=== PATIENT | male | born 1975 | race Caucasian/White ===

== ENCOUNTER → 2017-07-08 | Outpatient (CLI) | payer OTHER ==
--- NOTE | 2017-07-08 17:02 | XR ---
EXAMINATION TYPE: XR elbow complete LT DATE OF EXAM: 07/08/2017 COMPARISON: NONE HISTORY: Elbow pain TECHNIQUE: Previews FINDINGS: I see no fracture nor dislocation. There is a 1.5 cm irregular calcification at the medial humeral condyle. There is no sign of elbow joint effusion. Joint spaces are fairly normal. IMPRESSION: Soft tissue calcification consistent with old injury. No acute bony abnormality.
== END ==
LOC: RADXRMAIN 16:36
PROVIDERS: ATTEND Emergency Medicine
DX: S53.402A Unspecified sprain of left elbow, initial encounter (principal)

== ENCOUNTER 2018-02-13 09:27 | Emergency (ER) | payer OTHER ==
[2018-02-13 09:33] VITALS: TEMP 98.1
[2018-02-13] MEDS ORDERED: GELATIN SPONGE,ABSORB (SMALL) 1 EACH SPONGE TOPICAL STA (09:57)
--- NOTE | 2018-02-13 10:18 | ED ---
General Adult HPI - General Chief complaint: Wound/Laceration Stated complaint: [facility] - lt hand lac Time Seen by Provider: 02/13/18 09:48 Source: patient, RN notes reviewed Mode of arrival: ambulatory Limitations: no limitations - History of Present Illness Initial comments: Patient 42-year-old male presented to the emergency room today with chief complaint of a laceration to the left index. He does admit that he was at work cutting some paper with a spinner box when it slipped and caused a laceration to the distal tip of the left index. He does not that his tetanus is up-to-date. Patient does admit that it cut the tip of the finger off any septal time stopping the bleeding. Patient denies any other complaints or symptoms. - Related Data Home Medications Medication Instructions Recorded Confirmed Amitriptyline HCl 10 mg PO HS 02/13/18 02/13/18 Simvastatin [Zocor] 10 mg PO HS 02/13/18 02/13/18 Allergies Allergy/AdvReac Type Severity Reaction Status Date / Time No Known Allergies Allergy Verified 02/13/18 09:39 Review of Systems ROS Statement: Those systems with pertinent positive or pertinent negative responses have been documented in the HPI. ROS Other: All systems not noted in ROS Statement are negative. Past Medical History Past Medical History: Hypertension History of Any Multi-Drug Resistant Organisms: None Reported Past Surgical History: Tonsillectomy Past Psychological History: No Psychological Hx Reported Smoking Status: Never smoker Past Alcohol Use History: None Reported Past Drug Use History: None Reported General Exam - General Exam Comments Initial Comments: General: The patient is awake and alert, in no distress, and does not appear acutely ill. Neck: The neck is supple, there is no tenderness or JVD. Cardiovascular: There is a regular rate and rhythm. No murmur, rub or gallop is appreciated. Respiratory: Lungs are clear to auscultation, respirations are non-labored, breath sounds are equal. No wheezes, stridor, rales, or rhonchi. Musculoskeletal: Full range motion. Sensation intact. Pulses equal bilateral 2 +. Strength 5/5. Neurological: A&O x 3. CN II-XII intact, There are no obvious motor or sensory deficits. Coordination appears grossly intact. Speech is normal. Skin: Distal tip of the left index finger has been amputated and there is mild venous oozing. Psychiatric: Normal mood and affect. Limitations: no limitations Course Vital Signs 02/13/18 09:31 Temperature 98.1 F Pulse Rate 70 Respiratory 18 Rate Blood Pressure 147/101 O2 Sat by Pulse 100 Oximetry Procedures - Procedures Initial comment: Gelfoam was placed at the distal tip of left index finger. Sterile dressing placed over top and applied. Medical Decision Making - Medical Decision Making Very superficial amputation of the distal aspect of left index finger was some of these oozing. Gelfoam was placed over top and sterile dressing applied. Bleeding controlled patient doing well at this time. Tetanus is up-to-date. Patient will be discharged home. Disposition Clinical Impression: Fingertip amputation Disposition: HOME SELF-CARE Condition: Good Instructions: Laceration (ED) Additional Instructions: Please change dressing twice daily. Watch for signs of infection. Please return to emergency room if the symptoms increase or worsen or for any other concerns. Is patient prescribed a controlled substance at d/c from ED?: No Referrals: Kamala Biggs DO [Primary Care Provider] - 1-2 days Time of Disposition: 10:17
[2018-02-13 10:25] VITALS: BP 151/88; PULSE 67; RESP 20
== END 2018-02-13 10:25 | disposition home or self-care (01) ==
LOC: EC 09:27
DX: S68.121A Partial traumatic metacarpophalangeal amputation of left index finger, initial encounter (principal); I10 Essential (primary) hypertension; Z79.899 Other long term (current) drug therapy; W26.8XXA Contact with other sharp object(s), not elsewhere classified, initial encounter; Y93.89 Activity, other specified; Y99.0 Civilian activity done for income or pay; Y92.69 Other specified industrial and construction area as the place of occurrence of the external cause
CPT/HCPCS: 99282

== ENCOUNTER 2018-05-24 13:11 | Inpatient (IN) | payer BC ==
[2018-05-24 13:57] LABS: Amphetamine Screen,Urine Not Detected (NotDetected); Barbiturate Screen,Urine Not Detected (NotDetected); Benzodiazepines Screen,Urine Not Detected (NotDetected); Cocaine Screen,Urine Not Detected (NotDetected); Methadone Screen, Urine Not Detected (NotDetected); Opiate Screen,Urine Not Detected (NotDetected); Oxycodone Screen, Urine Not Detected (NotDetected); Phencyclidine Screen,Urine Not Detected (NotDetected); Tricyclic Antidepressant,Urine Detected (NotDetected); Urn Cannabinoid Scrn Not Detected (NotDetected)
--- NOTE | 2018-05-24 14:03 | ED ---
Psych HPI - General Chief Complaint: Psychiatric Symptoms Stated Complaint: mental health Time Seen by Provider: 05/24/18 13:24 Source: patient, RN notes reviewed Mode of arrival: ambulatory Limitations: no limitations - History of Present Illness Initial Comments: 42-year-old male presents emergency Department chief complaint of depression, anxiety issues. Patient states that everything is building up in and he states that he is very stressed with work. He has had some thoughts of suicide with no plan. He states that just crosses his mind. He occasionally drinks alcohol no drug abuse. Patient states he does take amitriptyline currently. Patient denies any physical complaints. - Related Data Home Medications Medication Instructions Recorded Confirmed Amitriptyline HCl 10 mg PO HS 02/13/18 02/13/18 Simvastatin [Zocor] 10 mg PO HS 02/13/18 02/13/18 Allergies Allergy/AdvReac Type Severity Reaction Status Date / Time No Known Allergies Allergy Verified 05/24/18 13:19 Review of Systems ROS Statement: Those systems with pertinent positive or pertinent negative responses have been documented in the HPI. ROS Other: All systems not noted in ROS Statement are negative. Past Medical History Past Medical History: Hypertension History of Any Multi-Drug Resistant Organisms: None Reported Past Surgical History: Tonsillectomy Past Psychological History: Anxiety, Depression Smoking Status: Never smoker Past Alcohol Use History: Occasional Past Drug Use History: None Reported General Exam Limitations: no limitations General appearance: alert, in no apparent distress Head exam: Present: atraumatic, normocephalic, normal inspection Eye exam: Present: normal appearance, PERRL, EOMI. Absent: scleral icterus, conjunctival injection, periorbital swelling ENT exam: Present: normal exam, normal oropharynx, mucous membranes moist, TM's normal bilaterally, normal external ear exam Neck exam: Present: normal inspection, full ROM. Absent: tenderness, meningismus, lymphadenopathy Respiratory exam: Present: normal lung sounds bilaterally. Absent: respiratory distress, wheezes, rales, rhonchi, stridor Cardiovascular Exam: Present: regular rate, normal rhythm, normal heart sounds. Absent: systolic murmur, diastolic murmur, rubs, gallop, clicks Neurological exam: Present: alert, oriented X3, CN II-XII intact Psychiatric exam: Present: depressed Skin exam: Present: warm, dry, intact, normal color. Absent: rash Course Vital Signs 05/24/18 13:14 Temperature 97.7 F Pulse Rate 69 Respiratory 18 Rate Blood Pressure 156/86 O2 Sat by Pulse 99 Oximetry Medical Decision Making - Lab Data Lab Results 05/24/18 Range/Units 13:32 Urine Opiates Screen Not Detected (NotDetected) Ur Oxycodone Screen Not Detected (NotDetected) Urine Methadone Screen Not Detected (NotDetected) Ur Propoxyphene Screen Not Detected (NotDetected) Ur Barbiturates Screen Not Detected (NotDetected) U Tricyclic Antidepress Detected H (NotDetected) Ur Phencyclidine Scrn Not Detected (NotDetected) Ur Amphetamines Screen Not Detected (NotDetected) U Methamphetamines Scrn Not Detected (NotDetected) U Benzodiazepines Scrn Not Detected (NotDetected) Urine Cocaine Screen Not Detected (NotDetected) U Marijuana (THC) Screen Not Detected (NotDetected) Disposition Clinical Impression: Depression Disposition: ADMITTED IP TO THIS [facility] Condition: Stable Referrals: Kamala Biggs DO [Primary Care Provider] - 1-2 days
[2018-05-24] MEDS ORDERED: MAG HYDROX/AL HYDROX/SIMETH 30 ML CUP PO PRN (17:03)
[2018-05-24] MEDS ORDERED: MAGNESIUM HYDROXIDE 2,400 MG/10 ML CUP PO PRN (17:03)
[2018-05-24] MEDS ORDERED: LORazepam 1 MG TAB PO PRN (17:03)
[2018-05-24] MEDS ORDERED: ACETAMINOPHEN TAB 325 MG TAB PO PRN (17:03)
[2018-05-24] MEDS ORDERED: ZIPRASIDONE 20 MG VIAL IM PRN (17:07)
[2018-05-24 17:37] VITALS: BMI 37.8
[2018-05-24] MEDS: ATORVASTATIN 10 MG TAB PO SCH (20:53)
--- NOTE | 2018-05-24 22:15 | CONS ---
CONSULTATION DATE OF SERVICE: May 24, 2018. DATE OF CONSULTATION: May 24, 2018. PRESENTING COMPLAINT: Depressed, anxious. HISTORY OF PRESENTING ISSUE: This is a 42-year-old patient who follows with Dr. Kamala Biggs. Has a history of depression, anxiety. The patient has been started to work 2 jobs and he feels he is just feeling different, overwhelmed, having more depression and anxiety. He has had some suicidal thoughts. Appetite has gone down. The patient does take amitriptyline for insomnia and having trouble sleeping. Because of all these things, he decided to get himself signed in. Denies any hallucinations, aggressive behavior. The patient is very mellow during the interview. He presented to the ER. REVIEW OF SYSTEMS: CONSTITUTIONAL: None. HEENT none. Respiratory none. Cardiovascular none. Gastrointestinal: Slightly decreased appetite. HEENT none. Respiratory none. Cardiovascular none. Psychiatry as above. Neurological: Trouble sleeping. PAST MEDICAL HISTORY: Anxiety and depression. PAST SURGICAL HISTORY: Tonsillectomy. SOCIAL HISTORY: Does not smoke. Alcohol rarely. 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 FAMILY HISTORY: Reviewed, noncontributory to presentation. HOME MEDICATIONS: 1. Amitriptyline 10 mg q.h.s. 2. Zocor 10 mg q.h.s. ALLERGIES: None. EXAMINATION: VITAL SIGNS: Temperature 97.5, pulse 98, respirations 16, blood pressure 169/94, pulse ox 99 percent on room air. GENERAL APPEARANCE: Well built, BMI 37.8. Sitting up comfortable. EYES: Pupils equal, conjunctivae normal. HEENT: External appearance of nose and ears normal. Oral cavity normal. NECK: JVD not raised. Mass not palpable. RESPIRATORY: Effort normal. LUNGS are clear. CARDIOVASCULAR: 1st and 2nd sounds no edema. ABDOMEN: Soft, nontender. Liver and spleen not palpable. LYMPHATICS: No lymph nodes palpable in the neck and axilla. PSYCHIATRY: Alert and oriented x3. Mood and affect slightly low appearing. NEUROLOGICAL: Pupils equal. Cranial nerves grossly. Power and sensation grossly intact. INVESTIGATIONS: Urine drug screen positive for tricyclic antidepressants. ASSESSMENT: 1. Obesity BMI 37.8. 2. Essential hypertension. Patient has been diagnosed with, not taking any medications. Will not be started on antihypertensive. 3. Hyperlipidemia. 4. Chronic insomnia, probably from underlying stress. 5. Anxiety and depression, not otherwise specified. PLAN: The patient's Zocor will be continued. I will start the patient on lisinopril hydrochlorothiazide. The patient should see a dietitian for weight loss measures. Otherwise, antidepressants per the psychiatrist. Thank you. Follow up with Dr. Biggs. ELIZA / FREDERIC: [id number] /
[2018-05-25 09:33] LABS: ALT 42 U/L (21-72); AST 27 U/L (17-59); Albumin 4.7 g/dL (3.5-5.0); Alkaline Phosphatase 60 U/L (38-126); Anion Gap 10 mmol/L; Bilirubin, Delta 0.4 mg/dL (0.0-0.2); Bilirubin,Unconjugated 0.9 mg/dL (0.0-1.1); Blood Urea Nitrogen 14 mg/dL (9-20); Carbon Dioxide 28 mmol/L (22-30); Chloride 104 mmol/L (98-107); Glucose 92 mg/dL (74-99); Sodium 142 mmol/L (137-145); Total Bilirubin 1.3 mg/dL (0.2-1.3); Total Protein 7.7 g/dL (6.3-8.2)
[2018-05-25 09:39] LABS: Basophils % (A) 0 %; Eosinophils # (A) 0.2 k/uL (0-0.7); Eosinophils % (A) 2 %; HCT 51.1 % (39.0-53.0); HGB 17.2 gm/dL (13.0-17.5); Lymphocytes # (A) 1.3 k/uL (1.0-4.8); Lymphocytes % (A) 13 %; MCH 30.3 pg (25.0-35.0); MCHC 33.6 g/dL (31.0-37.0); MCV 90.1 fL (80.0-100.0); Monocytes # (A) 0.5 k/uL (0-1.0); Monocytes % (A) 5 %; Neutrophils # (A) 7.9 k/uL (1.3-7.7); Neutrophils % (A) 78 %; Platelet Count 248 k/uL (150-450); RBC 5.67 m/uL (4.30-5.90); RDW 12.5 % (11.5-15.5)
[2018-05-25] MEDS ORDERED: VENLAFAXINE HCL ER 37.5 MG CAP PO SCH (20:00)
[2018-05-25] MEDS ORDERED: lamoTRIgine 25 MG TAB PO SCH (20:00)
[2018-05-25] MEDS: PRAMIPEXOLE 1 MG TAB PO SCH (20:36)
[2018-05-25] MEDS: ATORVASTATIN 10 MG TAB PO SCH (20:36)
--- NOTE | 2018-05-26 11:45 | P.HP ---
Psychiatric H&P - . H&P Date: 05/25/18 History & Physical: Allergies Allergy/AdvReac Type Severity Reaction Status Date / Time No Known Allergies Allergy Verified 05/24/18 17:38 Vital Signs Temp 97.8 F 05/25/18 06:34 Pulse 85 05/25/18 06:34 Resp 18 05/25/18 06:34 BP 151/87 05/25/18 06:34 Pulse Ox 99 05/24/18 13:14 Intake & Output 05/24/18 05/25/18 05/25/18 18:59 06:59 18:59 Weight 109.6 kg 109.6 kg Laboratory Last Values WBC 10.0 k/uL (3.8-10.6) 05/25/18 08:32 RBC 5.67 m/uL (4.30-5.90) 05/25/18 08:32 Hgb 17.2 gm/dL (13.0-17.5) 05/25/18 08:32 Hct 51.1 % (39.0-53.0) 05/25/18 08:32 MCV 90.1 fL (80.0-100.0) 05/25/18 08:32 MCH 30.3 pg (25.0-35.0) 05/25/18 08:32 MCHC 33.6 g/dL (31.0-37.0) 05/25/18 08:32 RDW 12.5 % (11.5-15.5) 05/25/18 08:32 Plt Count 248 k/uL (150-450) 05/25/18 08:32 Neutrophils % 78 % 05/25/18 08:32 Lymphocytes % 13 % 05/25/18 08:32 Monocytes % 5 % 05/25/18 08:32 Eosinophils % 2 % 05/25/18 08:32 Basophils % 0 % 05/25/18 08:32 Neutrophils # 7.9 k/uL (1.3-7.7) H 05/25/18 08:32 Lymphocytes # 1.3 k/uL (1.0-4.8) 05/25/18 08:32 Monocytes # 0.5 k/uL (0-1.0) 05/25/18 08:32 Eosinophils # 0.2 k/uL (0-0.7) 05/25/18 08:32 Basophils # 0.0 k/uL (0-0.2) 05/25/18 08:32 Sodium 142 mmol/L (137-145) 05/25/18 08:32 Potassium 4.0 mmol/L (3.5-5.1) 05/25/18 08:32 Chloride 104 mmol/L (98-107) 05/25/18 08:32 Carbon Dioxide 28 mmol/L (22-30) 05/25/18 08:32 Anion Gap 10 mmol/L 05/25/18 08:32 BUN 14 mg/dL (9-20) 05/25/18 08:32 Creatinine 0.80 mg/dL (0.66-1.25) 05/25/18 08:32 Est GFR (CKD-EPI)AfAm >90 (>60 ml/min/1.73 sqM) 05/25/18 08:32 Est GFR (CKD-EPI)NonAf >90 (>60 ml/min/1.73 sqM) 05/25/18 08:32 Glucose 92 mg/dL (74-99) 05/25/18 08:32 Calcium 10.0 mg/dL (8.4-10.2) 05/25/18 08:32 Total Bilirubin 1.3 mg/dL (0.2-1.3) 05/25/18 08:32 Conjugated Bilirubin 0.0 mg/dL (0.0-0.3) 05/25/18 08:32 Unconjugated Bilirubin 0.9 mg/dL (0.0-1.1) 05/25/18 08:32 Delta Bilirubin 0.4 mg/dL (0.0-0.2) H 05/25/18 08:32 AST 27 U/L (17-59) 05/25/18 08:32 ALT 42 U/L (21-72) 05/25/18 08:32 Alkaline Phosphatase 60 U/L (38-126) 05/25/18 08:32 Total Protein 7.7 g/dL (6.3-8.2) 05/25/18 08:32 Albumin 4.7 g/dL (3.5-5.0) 05/25/18 08:32 TSH 2.080 mIU/L (0.465-4.680) 05/25/18 08:32 Urine Opiates Screen Not Detected (NotDetected) 05/24/18 13:32 Ur Oxycodone Screen Not Detected (NotDetected) 05/24/18 13:32 Urine Methadone Screen Not Detected (NotDetected) 05/24/18 13:32 Ur Propoxyphene Screen Not Detected (NotDetected) 05/24/18 13:32 Ur Barbiturates Screen Not Detected (NotDetected) 05/24/18 13:32 U Tricyclic Antidepress Detected (NotDetected) H 05/24/18 13:32 Ur Phencyclidine Scrn Not Detected (NotDetected) 05/24/18 13:32 Ur Amphetamines Screen Not Detected (NotDetected) 05/24/18 13:32 U Methamphetamines Scrn Not Detected (NotDetected) 05/24/18 13:32 U Benzodiazepines Scrn Not Detected (NotDetected) 05/24/18 13:32 Urine Cocaine Screen Not Detected (NotDetected) 05/24/18 13:32 U Marijuana (THC) Screen Not Detected (NotDetected) 05/24/18 13:32 Assessment and Plan Assessment: Chief Complaint: Psychiatric Symptoms Stated Complaint: mental health Time Seen by Provider: 05/24/18 13:24 Source: patient, RN notes reviewed Mode of arrival: ambulatory Limitations: no limitations - History of Present Illness Initial Comments: 42-year-old male presents emergency Department chief complaint of depression, anxiety issues. Patient states that everything is building up in and he states that he is very stressed with work. He has had some thoughts of suicide with no plan. He states that just crosses his mind. He occasionally drinks alcohol no drug abuse. Patient states he does take amitriptyline currently. Patient denies any physical complaints. (1) Depression Current Visit: Yes Status: Acute Priority: High Code(s): F32.9 - MAJOR DEPRESSIVE DISORDER, SINGLE EPISODE, UNSPECIFIED SNOMED Code(s): 68175929 Plan: Chief Complaint: 2-year-old male presents emergency Department chief complaint of depression, anxiety issues. Patient states that everything is building up in and he states that he is very stressed with work. He has had some thoughts of suicide with no plan. He states that just crosses his mind. He occasionally drinks alcohol no drug abuse. Patient states he does take amitriptyline currently. Patient denies any physical complaints. Musculoskeletal Examination - Abnormal/Involuntary Movements: [none, ] Strength: [greater than antigravity (greater than/equal to 3/5) in all extremities, weakness:] Muscle Tone: [no impairment,] Gait: [grossly normal, Station: [grossly normal, Mental Status Examination - General Appearance: [ disheveled, casual, appears stated age, ] Speech/Language: [spontaneous, slow, hesitant, halting, monotone, ] Attitude/Behavior: [cooperative, guarded, withdrawn, indifferent] Mood: [euthymic, depressed, euphoric, anxious, elated, irritable, angry, fearful , hopelessness, other] Affect: [flat, incongruent, blunted constricted] Orientation: [time, person, place situation] Thought Content: [wnl] Risk Factors: [suicidal (ideations] Perception: [wnl] Thought Processes: [concrete, circumstantial, tangential] Concentration/Attention Span: [wnl] [Per observation and interview with the patient] Recent Memory: [ impaired] [2 or 3 out of 3 in 3 minutes] Remote Memory: [wnl] [past events, as related history] Intelligence: [ average] [based on history, based on vocabulary, syntax, grammar , and content] Judgement: [ poor] [per patient's behavior/history of present illness] Insight: [poor] [understanding severity of illness/history of present illness] Admitting Diagnosis: [Major depressive disorder severe] Patient Limitations: non-compliance, pathological/unsupported environment, no interests] Initial Plan of Care: [Initial hospitalization for 5-7 days stabilize his depression, includes titration of venlafaxine Lamictal and due to poor sleep and restless sleep Mirapex at bedtime. It will take 5-7 days to slowly titrate the medicine does not have any major side effects. He is integrated [facility] milieu therapeutic environment with nursing staff and social work recreational therapy and call managed by medicine] Estimated Length of Stay: [57 days] Initial Discharge Plan: [home referred to therapist, partial hospital, intensive outpatient, residential placement, other] Prognosis: [good, fair, guarded] Justification for Inpatient Hospitalization - [Hallucinations, delusions, agitation, anxiety, depression resulting in significant loss of functioning.] [Dangerous to self, others, or property with need for controlled environment.] [Emotional or behavioral conditions and complications requiring 24 hour medical and nursing care.] [Need for special drug therapy, or other therapeutic program requiring continuous hospitalization.] [Failure of social or occupational functioning.] [Inability to meet basic life and health needs.] Review of Systems ROS Statement: Those systems with pertinent positive or pertinent negative responses have been documented in the HPI. ROS Other: All systems not noted in ROS Statement are negative. Past Medical History Past Medical History: Hypertension History of Any Multi-Drug Resistant Organisms: None Reported Past Surgical History: Tonsillectomy Past Psychological History: Anxiety, Depression Smoking Status: Never smoker Past Alcohol Use History: Occasional Past Drug Use History: None Reported General Exam Limitations: no limitations General appearance: alert, in no apparent distress Head exam: Present: atraumatic, normocephalic, normal inspection Eye exam: Present: normal appearance, PERRL, EOMI. Absent: scleral icterus, conjunctival injection, periorbital swelling ENT exam: Present: normal exam, normal oropharynx, mucous membranes moist, TM's normal bilaterally, normal external ear exam Neck exam: Present: normal inspection, full ROM. Absent: tenderness, meningismus, lymphadenopathy Respiratory exam: Present: normal lung sounds bilaterally. Absent: respiratory distress, wheezes, rales, rhonchi, stridor Cardiovascular Exam: Present: regular rate, normal rhythm, normal heart sounds. Absent: systolic murmur, diastolic murmur, rubs, gallop, clicks Neurological exam: Present: alert, oriented X3, CN II-XII intact Psychiatric exam: Present: depressed Skin exam: Present: warm, dry, intact, normal color. Absent: rash Course Vital Signs 05/24/18 13:14 Temperature 97.7 F Pulse Rate 69 Respiratory 18 Rate Blood Pressure 156/86 O2 Sat by Pulse 99 Oximetry Medical Decision Making - Lab Data Lab Results 05/24/18 Range/Units 13:32 Urine Opiates Screen Not Detected (NotDetected) Ur Oxycodone Screen Not Detected (NotDetected) Urine Methadone Screen Not Detected (NotDetected) Ur Propoxyphene Screen Not Detected (NotDetected) Ur Barbiturates Screen Not Detected (NotDetected) U Tricyclic Antidepress Detected H (NotDetected) Ur Phencyclidine Scrn Not Detected (NotDetected) Ur Amphetamines Screen Not Detected (NotDetected) U Methamphetamines Scrn Not Detected (NotDetected) U Benzodiazepines Scrn Not Detected (NotDetected) Urine Cocaine Screen Not Detected (NotDetected) U Marijuana (THC) Screen Not Detected (NotDetected) Disposition Clinical Impression: Depression Disposition: ADMITTED IP TO THIS [facility] Condition: Stable Referrals: Time with Patient: Greater than 30
--- NOTE | 2018-05-26 11:53 | P.PN ---
Subjective Progress Note Date: 05/26/18 Principal diagnosis: MDD This 42-year-old white male was seen today and chart reviewed and discussed in detail the symptoms of depression. He was able take medications last night venlafaxine Lamictal and Mirapex without difficulty and now is on a titration course for stabilization. Also talked about diet Colleen versus a hopeful plant-based diet and suggested 42-year-old male presents emergency Department chief complaint of depression, anxiety issues. Patient states that everything is building up in and he states that he is very stressed with work. He has had some thoughts of suicide with no plan. He states that just crosses his mind. He occasionally drinks alcohol no drug abuse. Patient states he does take amitriptyline currently. Patient denies any physical complaints. Mental Status Examination - General Appearance: [ disheveled, casual, appears stated age, ] Speech/Language: [spontaneous, slow, hesitant, halting, monotone, ] Attitude/Behavior: [cooperative, guarded, withdrawn, indifferent] Mood: [euthymic, depressed, euphoric, anxious, elated, irritable, angry, fearful , hopelessness, other] Affect: [flat, incongruent, blunted constricted] Orientation: [time, person, place situation] Thought Content: [wnl] Risk Factors: [suicidal (ideations] Perception: [wnl] Thought Processes: [concrete, circumstantial, tangential] Concentration/Attention Span: [wnl] [Per observation and interview with the patient] Recent Memory: [ impaired] [2 or 3 out of 3 in 3 minutes] Remote Memory: [wnl] [past events, as related history] Intelligence: [ average] [based on history, based on vocabulary, syntax, grammar , and content] Judgement: [ poor] [per patient's behavior/history of present illness] Insight: [poor] [understanding severity of illness/history of present illness] Admitting Diagnosis: [Major depressive disorder severe] Initial Plan of Care: [Initial hospitalization for 5 days stabilize his depression, includes titration of venlafaxine Lamictal and due to poor sleep and restless sleep Mirapex at bedtime. It will take 5 days to slowly titrate the medicine does not have any major side effects. He is integrated ley milieu therapeutic environment with nursing staff and social work recreational therapy and call managed by medicine] Estimated Length of Stay: [57 days] Initial Discharge Plan: [home referred to therapist, partial hospital, intensive outpatient, residential placement, other] Prognosis: [good] Objective - Vital Signs Vital signs: Vital Signs Temp 98.3 F 05/26/18 06:17 Pulse 97 05/26/18 06:21 Resp 20 05/26/18 06:17 BP 150/100 05/26/18 06:21 Pulse Ox 97 05/26/18 06:21 Intake & Output 05/25/18 05/26/18 05/26/18 18:59 06:59 18:59 Weight 109.6 kg - Labs CBC & Chem 7: 05/25/18 08:32 05/25/18 08:32 Assessment and Plan (1) Depression Current Visit: Yes Status: Acute Priority: High Code(s): F32.9 - MAJOR DEPRESSIVE DISORDER, SINGLE EPISODE, UNSPECIFIED SNOMED Code(s): 68044278 Plan: Chief Complaint: 2-year-old male presents emergency Department chief complaint of depression, anxiety issues. Patient states that everything is building up in and he states that he is very stressed with work. He has had some thoughts of suicide with no plan. He states that just crosses his mind. He occasionally drinks alcohol no drug abuse. Patient states he does take amitriptyline currently. Patient denies any physical complaints. Musculoskeletal Examination - Abnormal/Involuntary Movements: [none, ] Strength: [greater than antigravity (greater than/equal to 3/5) in all extremities, weakness:] Muscle Tone: [no impairment,] Gait: [grossly normal, Station: [grossly normal, Mental Status Examination - General Appearance: [ disheveled, casual, appears stated age, ] Speech/Language: [spontaneous, slow, hesitant, halting, monotone, ] Attitude/Behavior: [cooperative, guarded, withdrawn, indifferent] Mood: [euthymic, depressed, euphoric, anxious, elated, irritable, angry, fearful , hopelessness, other] Affect: [flat, incongruent, blunted constricted] Orientation: [time, person, place situation] Thought Content: [wnl] Risk Factors: [suicidal (ideations] Perception: [wnl] Thought Processes: [concrete, circumstantial, tangential] Concentration/Attention Span: [wnl] [Per observation and interview with the patient] Recent Memory: [ impaired] [2 or 3 out of 3 in 3 minutes] Remote Memory: [wnl] [past events, as related history] Intelligence: [ average] [based on history, based on vocabulary, syntax, grammar , and content] Judgement: [ poor] [per patient's behavior/history of present illness] Insight: [poor] [understanding severity of illness/history of present illness] Admitting Diagnosis: [Major depressive disorder severe] Patient Limitations: non-compliance, pathological/unsupported environment, no interests] Initial Plan of Care: [Initial hospitalization for 5-7 days stabilize his depression, includes titration of venlafaxine Lamictal and due to poor sleep and restless sleep Mirapex at bedtime. It will take 5-7 days to slowly titrate the medicine does not have any major side effects. He is integrated ley milieu therapeutic environment with nursing staff and social work recreational therapy and call managed by medicine] Estimated Length of Stay: [57 days] Initial Discharge Plan: [home referred to therapist, partial hospital, intensive outpatient, residential placement, other] Prognosis: [good, fair, guarded] Justification for Inpatient Hospitalization - [Hallucinations, delusions, agitation, anxiety, depression resulting in significant loss of functioning.] [Dangerous to self, others, or property with need for controlled environment.] [Emotional or behavioral conditions and complications requiring 24 hour medical and nursing care.] [Need for special drug therapy, or other therapeutic program requiring continuous hospitalization.] [Failure of social or occupational functioning.] [Inability to meet basic life and health needs.] Review of Systems ROS Statement: Those systems with pertinent positive or pertinent negative responses have been documented in the HPI. ROS Other: All systems not noted in ROS Statement are negative. Past Medical History Past Medical History: Hypertension History of Any Multi-Drug Resistant Organisms: None Reported Past Surgical History: Tonsillectomy Past Psychological History: Anxiety, Depression Smoking Status: Never smoker Past Alcohol Use History: Occasional Past Drug Use History: None Reported General Exam Limitations: no limitations General appearance: alert, in no apparent distress Head exam: Present: atraumatic, normocephalic, normal inspection Eye exam: Present: normal appearance, PERRL, EOMI. Absent: scleral icterus, conjunctival injection, periorbital swelling ENT exam: Present: normal exam, normal oropharynx, mucous membranes moist, TM's normal bilaterally, normal external ear exam Neck exam: Present: normal inspection, full ROM. Absent: tenderness, meningismus, lymphadenopathy Respiratory exam: Present: normal lung sounds bilaterally. Absent: respiratory distress, wheezes, rales, rhonchi, stridor Cardiovascular Exam: Present: regular rate, normal rhythm, normal heart sounds. Absent: systolic murmur, diastolic murmur, rubs, gallop, clicks Neurological exam: Present: alert, oriented X3, CN II-XII intact Psychiatric exam: Present: depressed Skin exam: Present: warm, dry, intact, normal color. Absent: rash Course Vital Signs 05/24/18 13:14 Temperature 97.7 F Pulse Rate 69 Respiratory 18 Rate Blood Pressure 156/86 O2 Sat by Pulse 99 Oximetry Medical Decision Making - Lab Data Lab Results 05/24/18 Range/Units 13:32 Urine Opiates Screen Not Detected (NotDetected) Ur Oxycodone Screen Not Detected (NotDetected) Urine Methadone Screen Not Detected (NotDetected) Ur Propoxyphene Screen Not Detected (NotDetected) Ur Barbiturates Screen Not Detected (NotDetected) U Tricyclic Antidepress Detected H (NotDetected) Ur Phencyclidine Scrn Not Detected (NotDetected) Ur Amphetamines Screen Not Detected (NotDetected) U Methamphetamines Scrn Not Detected (NotDetected) U Benzodiazepines Scrn Not Detected (NotDetected) Urine Cocaine Screen Not Detected (NotDetected) U Marijuana (THC) Screen Not Detected (NotDetected) Disposition Clinical Impression: Depression Disposition: ADMITTED IP TO THIS [facility] Condition: Stable Referrals: Time with Patient: Greater than 30
[2018-05-26] MEDS: LISINOPRIL-HCTZ 20-12.5 MG 1 EACH TAB PO SCH (13:30)
[2018-05-26] MEDS: lamoTRIgine 25 MG TAB PO SCH (21:17)
[2018-05-26] MEDS: VENLAFAXINE HCL ER 75 MG CAP PO SCH (21:17)
[2018-05-26] MEDS: cloNIDine HCL 0.1 MG TAB PO SCH (21:17)
[2018-05-26] MEDS: PRAMIPEXOLE 1 MG TAB PO SCH (21:17)
[2018-05-26 22:18] LABS: Cholesterol 153 mg/dL (<200); HDL Cholesterol 44 mg/dL (40-60); LDL Cholesterol,Calculated 90 mg/dL (0-99); Triglycerides 97 mg/dL (<150)
[2018-05-27] MEDS: lamoTRIgine 25 MG TAB PO SCH (09:26)
[2018-05-27] MEDS: cloNIDine HCL 0.1 MG TAB PO SCH ×2 (09:26→21:09)
[2018-05-27] MEDS: LISINOPRIL-HCTZ 20-12.5 MG 1 EACH TAB PO SCH (09:26)
--- NOTE | 2018-05-27 19:28 | P.PN ---
Progress Note - Text Progress Note Date: 05/27/18 IDENTIFICATION DATA: 42-year-old male admitted with worsening depression, job stress and anxiety. INTERVAL HISTORY: Behavioral problems No major behavioral problems reported. Mood disorder: He reports being in the hospital and talking to others going to groups has helped him a lot. He states he is able to come terms with himself. He states he is now able to think back and realize what went wrong and claims he is writing things to sort and organize his work schedules so he will not be too overwhelmed with his work schedules. He currently understands that he had taken too much on his shoulders than he could handle. He satets he is slowly recouparating himself. He reports feeling little confused at times. He states he is trying to get back to his normal Self again. He states he is picking back up on his motivation. He reports slight improvement in his appetite and sleep. He denies current suicidal or homicidal ideations Psychosis: Denies symptoms of psychosis. MENTAL STATUS EXAMINATION: 42- year-old male. He appeared his stated age in fair grooming and hygiene. dressed casually. No abnormal movements noted. The patient is alert and oriented 4 and in no apparent distress. speech and thought process are linear and goal directed. Mood is reported as getting better and affect is constricted. Denies suicidal or homicidal ideation. Denies auditory and visual hallucaintions. Not delusional. insight and judgment are improving. ASSESSMENT AND PLAN: Continue current medications Continue all precuations Monitor for symptoms
[2018-05-27] MEDS: PRAMIPEXOLE 1 MG TAB PO SCH (21:09)
[2018-05-27] MEDS: VENLAFAXINE HCL ER 75 MG CAP PO SCH (21:09)
[2018-05-27] MEDS: ATORVASTATIN 10 MG TAB PO SCH (21:09)
[2018-05-28] MEDS: cloNIDine HCL 0.1 MG TAB PO SCH ×2 (10:12→21:17)
[2018-05-28] MEDS: lamoTRIgine 25 MG TAB PO SCH (10:12)
[2018-05-28] MEDS: LISINOPRIL-HCTZ 20-12.5 MG 1 EACH TAB PO SCH (10:12)
--- NOTE | 2018-05-28 17:55 | P.PN ---
Progress Note - Text Progress Note Date: 05/28/18 IDENTIFICATION DATA : 42-year-old male admitted with worsening depression, job stress and anxiety. INTERVAL HISTORY: He reports feeling lot better today. He however reports feeling anxious when he thinks about his job. He reports his sleep is hit and miss and states at times it is difficult to sleep due to being noisy on the unit. He states he has been able to eat well. He is complaint with his medications. He reports waking up feeling foggy and attributes it to getting adjusted to his medications. He reports feeling confused at times and is unable to tell the names of his current medications. He also complains of constipation. MENTAL STATUS EXAMINATION: The patient is alert and oriented 4 and in no apparent distress. he appears in fair grooming and hygiene. Dressed casually. He is pleasant and cooperative. Mood is "better" and affect is constricted. Denies auditory and visual hallucinations. thought processes is linear and goal directed. thought content is negative for suicidal or homicidal ideation. insight and judgment are improving ASSESSMENT AND PLAN: Continue current medications Continue precuations Monitor for symptoms
[2018-05-28] MEDS: PRAMIPEXOLE 1 MG TAB PO SCH (21:17)
[2018-05-28] MEDS: ATORVASTATIN 10 MG TAB PO SCH (21:17)
[2018-05-28] MEDS: VENLAFAXINE HCL ER 75 MG CAP PO SCH (21:17)
[2018-05-29 07:12] VITALS: TEMP 98.3
[2018-05-29] MEDS: cloNIDine HCL 0.1 MG TAB PO SCH (08:05)
[2018-05-29] MEDS: LISINOPRIL-HCTZ 20-12.5 MG 1 EACH TAB PO SCH (08:05)
[2018-05-29] MEDS: lamoTRIgine 25 MG TAB PO SCH (08:05)
[2018-05-29 08:07] VITALS: BP 132/98; PULSE 103; RESP 18
--- NOTE | 2018-05-29 11:20 | P.DS ---
Providers Date of admission: 05/24/18 16:33 Expected date of discharge: 05/29/18 Attending physician: Sherman Miranda DO Consults: 05/24/18 17:03 Consult Physician Routine Consulting Provider: Umang Munson Consult Reason/Comments: H & P and medical care Do you want consulting provider notified?: Yes Primary care physician: Kamala Biggs - Discharge Diagnosis(es) (1) Depression Current Visit: Yes Status: Acute Priority: High Hospital Course: 42-year-old male presents emergency Department chief complaint of depression, anxiety issues. Patient states that everything is building up in and he states that he is very stressed with work. He has had some thoughts of suicide with no plan. He states that just crosses his mind. He occasionally drinks alcohol no drug abuse. Patient states he does take amitriptyline currently. Patient denies any physical complaints. Initial Plan of Care: [Initial hospitalization for 5-7 days stabilize his depression, includes titration of venlafaxine Lamictal and due to poor sleep and restless sleep Mirapex at bedtime. It will take 5-7 days to slowly titrate the medicine does not have any major side effects. He is integrated ley milieu therapeutic environment with nursing staff and social work recreational therapy and call managed by medicine] Past Medical History Past Medical History: Hypertension History of Any Multi-Drug Resistant Organisms: None Reported Past Surgical History: Tonsillectomy Past Psychological History: Anxiety, Depression Smoking Status: Never smoker Past Alcohol Use History: Occasional Past Drug Use History: None Reported Mental Status Examination - General Appearance: [Dressed and groomed and appropriate with good eye contact] Speech/Language: [Spontaneous with good concentration and appropriate answers] Attitude/Behavior: [cooperative] Mood: [euthyic] Affect: [Reactive and appropriate Orientation: [time, person, place situation] Thought Content: [wnl] Risk Factors: [No suicidal homicidal ideation Perception: [wnl] Thought Processes: [Intact] Concentration/Attention Span: [wnl] [Per observation and interview with the patient] Recent Memory: [ Within normal] [2 or 3 out of 3 in 3 minutes] Remote Memory: [wnl] [past events, as related history] Intelligence: [ average] [based on history, based on vocabulary, syntax, grammar , and content] Judgement: [ Deemed well within normal] [per patient's behavior/history of present illness] Insight: [Increased since his hospitalization has greater understanding of the severity of his illness and why he is here] [understanding severity of illness/ history of present illness] Hospital course: This 42-year-old male presented to the emergency room with the chief complaint of depression and anxiety and overwhelming fear. He was admitted to the behavioral unit and integrated into work and milieu therapeutic environment. He participated in social work group, nursing group, recreational group, and was evaluated by medicine which found he had mild hypertension which was treated. He does have hypercholesterolemia and is treated for that as well with the staff. He had no adverse reaction to the medication of starting on venlafaxine Lamictal and Mirapex for enabling his sleep anxiety and depression. As noted before list of medications are listed. I did emphasize to him he has some worry about medication causing weight suggested a hopeful plant-based diet, exercise, a palm food 3 times a day and healthy lifestyle. Patient Condition at Discharge: Stable Plan - Discharge Summary Discharge Rx Participant: No New Discharge Prescriptions: New cloNIDine HCL [Catapres] 0.1 mg PO BID 30 Days #60 tab lamoTRIgine [LaMICtal] 50 mg PO DAILY 30 Days #30 tab Lisinopril-Hctz 20-12.5 mg [Zestoretic 20-12.5] 1 each PO DAILY 30 Days #30 tab Pramipexole [Mirapex] 1 mg PO 1999 30 Days #30 tab Venlafaxine HCl ER [Effexor XR] 75 mg PO HS 30 Days #30 cap.er.24h Continue Simvastatin [Zocor] 10 mg PO HS Discontinued Amitriptyline HCl 10 mg PO HS Discharge Medication List Simvastatin [Zocor] 10 mg PO HS 02/13/18 [History] Lisinopril-Hctz 20-12.5 mg [Zestoretic 20-12.5] 1 each PO DAILY 30 Days #30 tab 05/29/18 [Rx] Pramipexole [Mirapex] 1 mg PO 1999 30 Days #30 tab 05/29/18 [Rx] Venlafaxine HCl ER [Effexor XR] 75 mg PO HS 30 Days #30 cap.er.24h 05/29/18 [Rx] cloNIDine HCL [Catapres] 0.1 mg PO BID 30 Days #60 tab 05/29/18 [Rx] lamoTRIgine [LaMICtal] 50 mg PO DAILY 30 Days #30 tab 05/29/18 [Rx] Follow up Appointment(s)/Referral(s): Kamala Biggs DO [Primary Care Provider] - 1-2 days Discharge Disposition: HOME SELF-CARE
[2018-05-29 11:29] LABS: Appearance,Urine Clear (Clear); Bilirubin,Urine Negative (Negative); Blood,Urine Trace (Negative); Color,Urine Light Yellow; Glucose,Urine (UA) Negative (Negative); Ketones,Urine Negative (Negative); Leukocyte Esterase,Urine Negative (Negative); Nitrite,Urine Negative (Negative); Protein,Urine Negative (Negative); RBC,Urine <1 /hpf (0-5); Specific Gravity,Urine 1.005 (1.001-1.035); Urobilinogen,Urine <2.0 mg/dL (<2.0)
== END 2018-05-29 15:10 | disposition home or self-care (01) | DRG 881 ==
LOC: EC 13:11 → 3MHU 16:33
PROVIDERS: ADMIT Psychiatry & Neurology Psychiatry; ATTEND Psychiatry & Neurology Psychiatry
DX: F32.9 Major depressive disorder, single episode, unspecified (principal); R45.851 Suicidal ideations; E66.9 Obesity, unspecified; E78.00 Pure hypercholesterolemia, unspecified; F41.9 Anxiety disorder, unspecified; F51.04 Psychophysiologic insomnia; I10 Essential (primary) hypertension; K59.00 Constipation, unspecified; Z68.37 Body mass index [BMI] 37.0-37.9, adult; Z91.19 Patient's noncompliance with other medical treatment and regimen
CPT/HCPCS: 80053; 80061; 80306; 81001; 82075; 82248; 84443; 85025; 99285

== ENCOUNTER 2020-02-20 17:41 | Emergency (ER) | payer BC ==
--- NOTE | 2020-02-20 18:29 | ED ---
General Adult HPI - General Stated complaint: COVID exposure, wants test - History of Present Illness Initial comments: The patient is a 44-year-old male who presents to the emergency room and accompanied by his son requesting Covid testing. The patient found out that his mother test positive for Covid yesterday and he was in close contact with her. He denies having any symptoms. He denies any headaches or visual changes. No fevers or chills. Denies cough, shortness of breath. No nausea or vomiting. There are no other alleviating, precipitating or modifying factors - Related Data Home Medications Medication Instructions Recorded Confirmed Simvastatin [Zocor] 10 mg PO HS 02/13/18 05/24/18 Previous Rx's Medication Instructions Recorded Lisinopril-Hctz 20-12.5 mg 1 each PO DAILY 30 Days #30 tab 05/29/18 [Zestoretic 20-12.5] Pramipexole [Mirapex] 1 mg PO 2000 30 Days #30 tab 05/29/18 Venlafaxine HCl ER [Effexor XR] 75 mg PO HS 30 Days #30 cap.er.24h 05/29/18 cloNIDine HCL [Catapres] 0.1 mg PO BID 30 Days #60 tab 05/29/18 lamoTRIgine [LaMICtal] 50 mg PO DAILY 30 Days #30 tab 05/29/18 Allergies Allergy/AdvReac Type Severity Reaction Status Date / Time No Known Allergies Allergy Verified 05/24/18 17:38 Review of Systems ROS Statement: Those systems with pertinent positive or pertinent negative responses have been documented in the HPI. ROS Other: All systems not noted in ROS Statement are negative. Past Medical History Past Medical History: Coronary Artery Disease (CAD), Hypertension History of Any Multi-Drug Resistant Organisms: None Reported Past Surgical History: Tonsillectomy Past Anesthesia/Blood Transfusion Reactions: No Reported Reaction Past Psychological History: Anxiety, Depression Smoking Status: Never smoker Past Alcohol Use History: Occasional Past Drug Use History: None Reported Course Vital Signs 02/20/20 18:41 Temperature 97.6 F Pulse Rate 88 Respiratory 18 Rate Blood Pressure 157/104 O2 Sat by Pulse 96 Oximetry Medical Decision Making - Medical Decision Making Upon arrival the patient was placed into ATP room. Examination does not demonstrate any signs of respiratory distress. Patient reports feeling a symptomatic but is requesting Covid testing. Because this we did perform a swab. Patient is informed that he will be called with positive results. He is instructed to quarantine himself for 14 days. If she has any new or worsening symptoms he should return to the emergency room. Patient was in agreement with the treatment plan he was discharged home in stable condition Disposition Clinical Impression: Cough, Nasal congestion Disposition: HOME SELF-CARE Condition: Stable Instructions (If sedation given, give patient instructions): Normal Exam (ED) Additional Instructions: We will call you with positive results. Quarantine yourself for for 14 days. Return to the emergency room for any new or worsening symptoms Is patient prescribed a controlled substance at d/c from ED?: No Referrals: Kamala Biggs DO [Primary Care Provider] - 1-2 days Time of Disposition: 18:29
[2020-02-20 18:46] VITALS: BP 157/104; PULSE 88; RESP 18; TEMP 97.6
== END 2020-02-20 18:56 | disposition home or self-care (01) ==
LOC: EC 17:41
DX: U07.1 COVID-19 (principal); Z79.899 Other long term (current) drug therapy
CPT/HCPCS: 99283; U0003

== ENCOUNTER → 2022-11-23 | Outpatient (CLI) | payer OTHER ==
--- NOTE | 2022-11-23 15:55 | XR ---
EXAMINATION TYPE: XR lumbar spine 2 or 3V DATE OF EXAM: 11/23/2022 CLINICAL HISTORY: pain TECHNIQUE: Three views of the lumbar spine are submitted. COMPARISON: None. FINDINGS: There are 5 lumbar type vertebral bodies identified. The lumbar spine shows satisfactory alignment w ithout evidence of acute fracture or dislocation. Vertebral body heights are within normal limits. Disc spaces are within normal limits. The overlying soft tissue appears unremarkable. IMPRESSION: No acute fracture or dislocation is seen in the lumbar spine. ICD 10 NO FRACTURE, INITIAL EVALUATION
== END | disposition home or self-care (01) ==
LOC: CPPFTMAIN 14:56
PROVIDERS: ATTEND Emergency Medicine
DX: S39.012A Strain of muscle, fascia and tendon of lower back, initial encounter (principal)
CPT/HCPCS: 72100

== ENCOUNTER 2023-05-04 04:47 | Emergency (ER) | payer BC, OTHER ==
[2023-05-04 06:21] VITALS: RESP 18
[2023-05-04] MEDS ORDERED: SODIUM CHLORIDE 0.9% 2,000 ML IV STA (07:09)
[2023-05-04] MEDS ORDERED: ONDANSETRON 4 MG/2 ML VIAL IVP STA (07:10)
--- NOTE | 2023-05-04 07:19 | ED ---
General Adult HPI - General Chief complaint: Recheck/Abnormal Lab/Rx Stated complaint: Dehydration Time Seen by Provider: 05/04/23 06:58 Source: patient, RN notes reviewed Mode of arrival: ambulatory Limitations: no limitations - History of Present Illness Initial comments: 47-year-old male presents emergency Department chief complaint of concerns of dehydration. Patient states that he had some pressure symptoms to cervical weekend he states that he has not been eating well his been nauseated. He went to urgent care and told to get worse over emergency department. He denies any localized abdominal pain no chest pain or shortness of breath he states he has mild congestion and nausea. No fever no sick contacts. - Related Data Home Medications Medication Instructions Recorded Confirmed Simvastatin [Zocor] 10 mg PO HS 02/13/18 05/24/18 Previous Rx's Medication Instructions Recorded Lisinopril-Hctz 20-12.5 mg 1 each PO DAILY 30 Days #30 tab 05/29/18 [Zestoretic 20-12.5] Pramipexole [Mirapex] 1 mg PO 2000 30 Days #30 tab 05/29/18 Venlafaxine HCl ER [Effexor XR] 75 mg PO HS 30 Days #30 cap.er.24h 05/29/18 cloNIDine HCL [Catapres] 0.1 mg PO BID 30 Days #60 tab 05/29/18 lamoTRIgine [LaMICtal] 50 mg PO DAILY 30 Days #30 tab 05/29/18 Allergies Allergy/AdvReac Type Severity Reaction Status Date / Time No Known Allergies Allergy Verified 05/04/23 04:56 Review of Systems ROS Statement: Those systems with pertinent positive or pertinent negative responses have been documented in the HPI. ROS Other: All systems not noted in ROS Statement are negative. Past Medical History Past Medical History: Coronary Artery Disease (CAD), Hypertension History of Any Multi-Drug Resistant Organisms: None Reported Past Surgical History: Tonsillectomy Past Anesthesia/Blood Transfusion Reactions: No Reported Reaction Past Psychological History: Anxiety, Depression Smoking Status: Never smoker Past Alcohol Use History: Occasional Past Drug Use History: None Reported General Exam Limitations: no limitations General appearance: alert, in no apparent distress Head exam: Present: atraumatic, normocephalic, normal inspection Eye exam: Present: normal appearance, PERRL, EOMI. Absent: scleral icterus, conjunctival injection, periorbital swelling ENT exam: Present: normal exam, normal oropharynx, mucous membranes moist Neck exam: Present: normal inspection, full ROM. Absent: tenderness, meningismus, lymphadenopathy Respiratory exam: Present: normal lung sounds bilaterally. Absent: respiratory distress, wheezes, rales, rhonchi, stridor Cardiovascular Exam: Present: regular rate, normal rhythm, normal heart sounds. Absent: systolic murmur, diastolic murmur, rubs, gallop, clicks GI/Abdominal exam: Present: soft, normal bowel sounds. Absent: distended, tenderness, guarding, rebound, rigid Course Vital Signs 05/04/23 04:53 Temperature 98.1 F Pulse Rate 75 Respiratory 18 Rate Blood Pressure 155/84 O2 Sat by Pulse 97 Oximetry Medical Decision Making - Medical Decision Making Was pt. sent in by a medical professional or institution (, PA, COMMUNITY AFFAIRS DIRECTOR, urgent care, hospital, or alf...) When possible be specific @ -No Did you speak to anyone other than the patient for history (EMS, parent, family, police, friend...)? What history was obtained from this source @ -No Did you review nursing and triage notes (agree or disagree)? Why? @ -I reviewed and agree with nursing and triage notes Were old charts reviewed (outside hosp., previous admission, EMS record, old EKG, old radiological studies, urgent care reports/EKG's, alf records)? Report findings @ -No old charts were reviewed Differential Diagnosis (chest pain, altered mental status, abdominal pain women, abdominal pain men, vaginal bleeding, weakness, fever, dyspnea, syncope, headache, dizziness, GI bleed, back pain, seizure, CVA, palpatations, mental health, musculoskeletal)? @ -Dehydration, viral illness, muscle cramps, EKG interpreted by me (3pts min.). @ -None X-rays interpreted by me (1pt min.). @ -None done CT interpreted by me (1pt min.). @ -None done U/S interpreted by me (1pt. min.). @ -None done What testing was considered but not performed or refused? (CT, X-rays, U/S, labs)? Why? @ -None What meds were considered but not given or refused? Why? @ -None Did you discuss the management of the patient with other professionals (professionals i.e. , PA, COMMUNITY AFFAIRS DIRECTOR, lab, RT, psych nurse, criminal justice social worker, metal fabricating shop helper, teacher, special skills officer, case sealer)? Give summary @ -No Was smoking cessation discussed for >3mins.? @ -No Was critical care preformed (if so, how long)? @ -No Were there social determinants of health that impacted care today? How? (Homel essness, low income, unemployed, alcoholism, drug addiction, transportation, low edu. Level, literacy, decrease access to med. care, alf, rehab)? @ -No Was there de-escalation of care discussed even if they declined (Discuss DNR or withdrawal of care, Hospice)? DNR status @ -No What co-morbidities impacted this encounter? (DM, HTN, Smoking, COPD, CAD, Cancer, CVA, ARF, Chemo, Hep., AIDS, mental health diagnosis, sleep apnea, morbid obesity)? @ -None Was patient admitted / discharged? Hospital course, mention meds given and route, prescriptions, significant lab abnormalities, going to OR and other pertinent info. @ -Discharge patient felt improved started fluids and antiemetics patient's blood pressure started essentially unremarkable. This may be related to a viral illness. Patient agrees to plan of discharge to follow-up Undiagnosed new problem with uncertain prognosis? @ -No Drug Therapy requiring intensive monitoring for toxicity (Heparin, Nitro, Insulin, Cardizem)? @ -No Were any procedures done? @ -No Diagnosis/symptom? @ -Viral illness, muscle cramps Acute, or Chronic, or Acute on Chronic? @ -Acute Uncomplicated (without systemic symptoms) or Complicated (systemic symptoms)? @ -Uncomplicated Side effects of treatment? @ -No Exacerbation, Progression, or Severe Exacerbation? @ -No Poses a threat to life or bodily function? How? (Chest pain, [place], [place], pneumonia, PE, COPD, DKA, ARF, appy, cholecystitis, CVA, Diverticulitis, Homicidal, Suicidal, threat to staff... and all critical care pts) @ -No - Lab Data Result diagrams: 05/04/23 07:45 05/04/23 07:45 Lab Results 05/04/23 05/04/23 Range/Units 07:45 07:45 WBC 14.6 H (3.8-10.6) k/uL RBC 5.59 (4.30-5.90) m/uL Hgb 17.4 (13.0-17.5) gm/dL Hct 50.6 (39.0-53.0) % MCV 90.5 (80.0-100.0) fL MCH 31.1 (25.0-35.0) pg MCHC 34.3 (31.0-37.0) g/dL RDW 12.5 (11.5-15.5) % Plt Count 240 (150-450) k/uL MPV 7.8 Neutrophils % 78 % Lymphocytes % 11 % Monocytes % 4 % Eosinophils % 4 % Basophils % 0 % Neutrophils # 11.4 H (1.3-7.7) k/uL Lymphocytes # 1.7 (1.0-4.8) k/uL Monocytes # 0.7 (0-1.0) k/uL Eosinophils # 0.5 (0-0.7) k/uL Basophils # 0.0 (0-0.2) k/uL Sodium 137 (137-145) mmol/L Potassium 3.8 (3.5-5.1) mmol/L Chloride 103 (98-107) mmol/L Carbon Dioxide 24 (22-30) mmol/L Anion Gap 10 mmol/L BUN 15 (9-20) mg/dL Creatinine 0.86 (0.66-1.25) mg/dL Est GFR (CKD-EPI)AfAm >90 (>60 ml/min/1.73 sqM) Est GFR (CKD-EPI)NonAf >90 (>60 ml/min/1.73 sqM) Glucose 113 H (74-99) mg/dL Calcium 9.7 (8.4-10.2) mg/dL Magnesium 1.9 (1.6-2.3) mg/dL Total Bilirubin 1.1 (0.2-1.3) mg/dL AST 42 (17-59) U/L ALT 41 (4-49) U/L Alkaline Phosphatase 85 (38-126) U/L Total Protein 7.5 (6.3-8.2) g/dL Albumin 4.4 (3.5-5.0) g/dL Lipase 97 (23-300) U/L Disposition Clinical Impression: Muscle cramps, URI (upper respiratory infection) Disposition: HOME SELF-CARE Condition: Stable Instructions (If sedation given, give patient instructions): Viral Syndrome (ED) Additional Instructions: Please return to the Emergency Department if symptoms worsen or any other concerns. Is patient prescribed a controlled substance at d/c from ED?: No Referrals: Kamala Biggs DO [Primary Care Provider] - 1-2 days Time of Disposition: 08:20
[2023-05-04 07:55] LABS: Basophils % (A) 0 %; Eosinophils # (A) 0.5 k/uL (0-0.7); Eosinophils % (A) 4 %; HCT 50.6 % (39.0-53.0); HGB 17.4 gm/dL (13.0-17.5); Lymphocytes # (A) 1.7 k/uL (1.0-4.8); Lymphocytes % (A) 11 %; MCH 31.1 pg (25.0-35.0); MCHC 34.3 g/dL (31.0-37.0); MCV 90.5 fL (80.0-100.0); Mean Platelet Volume 7.8; Monocytes # (A) 0.7 k/uL (0-1.0); Monocytes % (A) 4 %; Neutrophils # (A) 11.4 k/uL (1.3-7.7); Neutrophils % (A) 78 %; Platelet Count 240 k/uL (150-450); RBC 5.59 m/uL (4.30-5.90); RDW 12.5 % (11.5-15.5); WBC 14.6 k/uL (3.8-10.6)
[2023-05-04 08:05] LABS: ALT 41 U/L (4-49); AST 42 U/L (17-59); African American GFR (CKD) >90 (>60 ml/min/1.73 sqM); Albumin 4.4 g/dL (3.5-5.0); Alkaline Phosphatase 85 U/L (38-126); Anion Gap 10 mmol/L; Blood Urea Nitrogen 15 mg/dL (9-20); Calcium 9.7 mg/dL (8.4-10.2); Carbon Dioxide 24 mmol/L (22-30); Chloride 103 mmol/L (98-107); Glucose 113 mg/dL (74-99); Lipase 97 U/L (23-300); Magnesium 1.9 mg/dL (1.6-2.3); Non-African American GFR(CKD) >90 (>60 ml/min/1.73 sqM); Potassium 3.8 mmol/L (3.5-5.1); Sodium 137 mmol/L (137-145); Total Bilirubin 1.1 mg/dL (0.2-1.3); Total Protein 7.5 g/dL (6.3-8.2)
[2023-05-04 10:23] VITALS: BP 159/102; PULSE 80; TEMP 98.4
== END 2023-05-04 10:25 | disposition home or self-care (01) ==
LOC: EC 04:47
DX: R25.2 Cramp and spasm (principal); J06.9 Acute upper respiratory infection, unspecified; I25.10 Atherosclerotic heart disease of native coronary artery without angina pectoris; I10 Essential (primary) hypertension; Z86.59 Personal history of other mental and behavioral disorders
CPT/HCPCS: 36415; 80053; 83690; 83735; 85025; 96360; 96361; 99283

== ENCOUNTER 2023-05-06 21:39 | Emergency (ER) | payer OTHER ==
[2023-05-06 22:09] VITALS: TEMP 98.3
[2023-05-06] MEDS ORDERED: ONDANSETRON ODT 4 MG TAB PO STA (22:57)
[2023-05-06] MEDS ORDERED: MAG HYDROX/AL HYDROX/SIMETH 30 ML, HYOSCYAMINE ELIXIR 10 ML, LIDOCAINE 2% GLYDO JELLY 1... PO STA ×3 (22:58)
[2023-05-07] MEDS ORDERED: guaiFENesin-DM 600/30MG 1 EACH TAB.ER.12H PO STA (01:12)
--- NOTE | 2023-05-07 01:13 | ED ---
General Adult HPI - General Chief complaint: Skin/Abscess/Foreign Body Stated complaint: Food Stuck in throat Time Seen by Provider: 05/06/23 22:10 Source: patient Mode of arrival: ambulatory Limitations: no limitations - History of Present Illness Initial comments: 47-year-old male presents to the emergency department reporting that food is stuck in his throat. States that he has recently been suffering from upper respiratory infection for which she was evaluated in the emergency Department. Tonight the patient was eating a hamburger when he had a coughing fit. He states that he ended up choking on the piece of hamburger. His friend completed some back blows is able to dislodge the piece of hamburger. He states he now feels as if it is stuck in his throat. Incident happened 30 minutes prior to hospital arrival. He denies any difficulty breathing at this time but does admit to some difficulty swallowing. No history of esophageal food impaction in the past. He denies any chest pain or shortness of breath. Admits nausea with one episode of vomiting. No fevers. He denies any abdominal pain. He did not attempt to take any medications at home for symptoms. No other alleviating, precipitating or modifying factors - Related Data Home Medications Medication Instructions Recorded Confirmed Simvastatin [Zocor] 10 mg PO HS 02/13/18 05/24/18 Previous Rx's Medication Instructions Recorded Lisinopril-Hctz 20-12.5 mg 1 each PO DAILY 30 Days #30 tab 05/29/18 [Zestoretic 20-12.5] Pramipexole [Mirapex] 1 mg PO 2000 30 Days #30 tab 05/29/18 Venlafaxine HCl ER [Effexor XR] 75 mg PO HS 30 Days #30 cap.er.24h 05/29/18 cloNIDine HCL [Catapres] 0.1 mg PO BID 30 Days #60 tab 05/29/18 lamoTRIgine [LaMICtal] 50 mg PO DAILY 30 Days #30 tab 05/29/18 Albuterol Inhaler [Ventolin Hfa 2 puff INHALATION QID #8 gm 05/07/23 Inhaler] guaiFENesin-DM 600/30MG [Mucinex 1 tab PO Q12HR #24 tab 05/07/23 Dm] Allergies Allergy/AdvReac Type Severity Reaction Status Date / Time No Known Allergies Allergy Verified 05/06/23 22:09 Review of Systems ROS Statement: Those systems with pertinent positive or pertinent negative responses have been documented in the HPI. ROS Other: All systems not noted in ROS Statement are negative. Past Medical History Past Medical History: Coronary Artery Disease (CAD), Hypertension History of Any Multi-Drug Resistant Organisms: None Reported Past Surgical History: Tonsillectomy Past Anesthesia/Blood Transfusion Reactions: No Reported Reaction Past Psychological History: Anxiety, Depression Smoking Status: Never smoker Past Alcohol Use History: Occasional Past Drug Use History: None Reported General Exam Limitations: no limitations General appearance: alert, in no apparent distress Head exam: Present: atraumatic, normocephalic, normal inspection Eye exam: Present: normal appearance, PERRL, EOMI. Absent: scleral icterus, conjunctival injection, periorbital swelling ENT exam: Present: normal exam, mucous membranes moist Neck exam: Present: normal inspection. Absent: tenderness, meningismus, lymphadenopathy Respiratory exam: Present: normal lung sounds bilaterally. Absent: respiratory distress, wheezes, rales, rhonchi, stridor Cardiovascular Exam: Present: regular rate, normal rhythm, normal heart sounds. Absent: systolic murmur, diastolic murmur, rubs, gallop, clicks GI/Abdominal exam: Present: soft, normal bowel sounds. Absent: distended, tenderness, guarding, rebound, rigid Extremities exam: Present: normal inspection, full ROM, normal capillary refill. Absent: tenderness, pedal edema, joint swelling, calf tenderness Back exam: Present: normal inspection Neurological exam: Present: alert, oriented X3, CN II-XII intact Psychiatric exam: Present: normal affect, normal mood Skin exam: Present: warm, dry, intact, normal color. Absent: rash Course Vital Signs 05/06/23 05/07/23 22:07 01:09 Temperature 98.3 F Pulse Rate 106 H 86 Respiratory 22 16 Rate Blood Pressure 134/84 122/79 O2 Sat by Pulse 99 98 Oximetry Medical Decision Making - Medical Decision Making Was pt. sent in by a medical professional or institution (, PA, PIN BALL MACHINE MECHANIC, urgent care, hospital, or longterm...) When possible be specific @ -No Did you speak to anyone other than the patient for history (EMS, parent, family, police, friend...)? What history was obtained from this source @ -No Did you review nursing and triage notes (agree or disagree)? Why? @ -I reviewed and agree with nursing and triage notes Were old charts reviewed (outside hosp., previous admission, EMS record, old EKG, old radiological studies, urgent care reports/EKG's, longterm records)? Report findings @ -No old charts were reviewed Differential Diagnosis (chest pain, altered mental status, abdominal pain women, abdominal pain men, vaginal bleeding, weakness, fever, dyspnea, syncope, headache, dizziness, GI bleed, back pain, seizure, CVA, palpatations, mental health, musculoskeletal)? @ -Esophageal bolus, aspiration, choking episode EKG interpreted by me (3pts min.). @ -Not completed X-rays interpreted by me (1pt min.). @ -Yes and demonstrates no acute process CT interpreted by me (1pt min.). @ -None done U/S interpreted by me (1pt. min.). @ -None done What testing was considered but not performed or refused? (CT, X-rays, U/S, labs)? Why? @ -None What meds were considered but not given or refused? Why? @ -None Did you discuss the management of the patient with other professionals (professionals i.e. , PA, PIN BALL MACHINE MECHANIC, lab, RT, psych nurse, health social work professor, cooker tender, teacher, public information officer, porter sample case)? Give summary @ -No Was smoking cessation discussed for >3mins.? @ -No Was critical care preformed (if so, how long)? @ -No Were there social determinants of health that impacted care today? How? (Homelessness, low income, unemployed, alcoholism, drug addiction, transportation, low edu. Level, literacy, decrease access to med. care, [facility], rehab)? @ -No Was there de-escalation of care discussed even if they declined (Discuss DNR or withdrawal of care, Hospice)? DNR status @ -No What co-morbidities impacted this encounter? (DM, HTN, Smoking, COPD, CAD, Cancer, CVA, ARF, Chemo, Hep., AIDS, mental health diagnosis, sleep apnea, morbid obesity)? @ -None Was patient admitted / discharged? Hospital course, mention meds given and route, prescriptions, significant lab abnormalities, going to OR and other pertinent info. @ -Upon arrival patient was placed in room 17. A thorough history and physical exam was performed. Patient is able to swallow his secretions. He is given a GI cocktail and some Zofran. Chest x-ray is performed. Results are discussed with the patient. Patient feels much more improved at this time. He will be discharged home and instructed to follow-up with his primary care doctor. Return for any new or worsening symptoms. Patient agreeable to the plan and he was discharged in stable condition Undiagnosed new problem with uncertain prognosis? @ -No Drug Therapy requiring intensive monitoring for toxicity (Heparin, Nitro, Insulin, Cardizem)? @ -No Were any procedures done? @ -No Diagnosis/symptom? @ -Acute choking episode, possible passed esophageal food bolus Acute, or Chronic, or Acute on Chronic? @ -Acute Uncomplicated (without systemic symptoms) or Complicated (systemic symptoms)? @ -Complicated Side effects of treatment? @ -No Exacerbation, Progression, or Severe Exacerbation? @ -No Poses a threat to life or bodily function? How? (Chest pain, [place], [place], pneumonia, PE, COPD, DKA, ARF, appy, cholecystitis, CVA, Diverticulitis, Homicidal, Suicidal, threat to staff... and all critical care pts) @ -No Disposition Clinical Impression: Choking episode, Cough Disposition: HOME SELF-CARE Condition: Stable Instructions (If sedation given, give patient instructions): Upper Respiratory Infection (ED), Esophageal Foreign Body (ED) Additional Instructions: Please take the Mucinex and use the inhaler. Follow-up with your doctor at your scheduled appointment on Tuesday. Return for any new or worsening symptoms Prescriptions: guaiFENesin-DM 600/30MG [Mucinex Dm] 1 tab PO Q12HR #24 tab Albuterol Inhaler [Ventolin Hfa Inhaler] 2 puff INHALATION QID #8 gm Is patient prescribed a controlled substance at d/c from ED?: No Referrals: Kamala Biggs DO [Primary Care Provider] - 1-2 days Time of Disposition: 01:18
[2023-05-07 01:36] VITALS: BP 122/79; PULSE 86; RESP 16
--- NOTE | 2023-05-07 02:07 | XR ---
EXAM: XR Chest, 2 Views CLINICAL HISTORY: ITS.REASON XR Reason: choking episode TECHNIQUE: Frontal and lateral views of the chest. COMPARISON: No relevant prior studies available. FINDINGS: Lungs: No consolidation. No overt edema. Subsegmental atelectasis within the right middle lobe. Pleural space: No pleural effusion. No pneumothorax. Heart: Unremarkable. No cardiomegaly. Bones/joints: Unremarkable. No fracture or malalignment. IMPRESSION: No acute cardiopulmonary abnormality.
== END 2023-05-07 01:38 | disposition home or self-care (01) ==
LOC: EC 21:39
DX: R09.89 Other specified symptoms and signs involving the circulatory and respiratory systems (principal); R05.9 Cough, unspecified; I10 Essential (primary) hypertension; I25.10 Atherosclerotic heart disease of native coronary artery without angina pectoris; Z79.899 Other long term (current) drug therapy
CPT/HCPCS: 71046; 99283

== ENCOUNTER 2024-09-12 09:06 | Day surgery (SDC) | payer BC, OTHER ==
[~2024-09-12 09:06] MED LIST: LACTATED RINGERS 1,000 ML IV SCH; LIDOCAINE 1% (10MG/ML) FOR IV START INTRADERMA PRN; ONDANSETRON 4 MG/2 ML VIAL IVP PRN
[2024-09-12] MEDS: IV FLUID CONTINUATION 500 ML IV ONE (09:35)
[2024-09-12 09:44] VITALS: TEMP 97.2
[2024-09-12] MEDS ORDERED: PROPOFOL 10 MG/ML 20 ML VIAL IV ONE (10:38)
--- NOTE | 2024-09-12 10:56 | P.PCN ---
Date of Procedure: 09/12/24 Procedure(s) Performed: BRIEF HISTORY: Patient is a 49-year-old pleasant white male scheduled for an elective colonoscopy as a part of screening for colon cancer PROCEDURE PERFORMED: Colonoscopy with biopsy. PREOPERATIVE DIAGNOSIS: Screening for colon cancer. IV sedation per Anesthesia. PROCEDURE: After informed consent was obtained, the patient, was brought into the endoscopy unit. IV sedation was administered by Anesthesia under continuous monitoring. Digital rectal examination was normal. Initially the Olympus CF-160 flexible video colonoscope was then inserted in the rectum, gradually advanced into the cecum without any difficulty. Careful examination was performed as the scope was gradually being withdrawn. Ileocecal valve and the appendiceal orifice were visualized and appeared normal. Prep was excellent. Mucosa of the cecum, ascending colon, transverse colon, descending colon, sigmoid colon, and rectum appeared normal. Rectum there was a 3 mm polyp that was removed by cold biopsy. Retroflexion was performed in the rectum and no lesions were seen. The patient tolerated the procedure well. IMPRESSION: 3 mm rectal polyp status post cold biopsy Rest of the colon appeared normal RECOMMENDATIONS: Findings of this examination were discussed with the patient as well as his family.. He was advised to follow-up with the biopsy results. The biopsy reveals adenoma he can have repeat colonoscopy in 5 years
[2024-09-12 11:02] VITALS: BP 133/87; PULSE 105; RESP 16
== END 2024-09-12 11:55 | disposition home or self-care (01) ==
LOC: ORWHC2ENDO 09:06
PROVIDERS: ATTEND Internal Medicine Gastroenterology
DX: Z12.11 Encounter for screening for malignant neoplasm of colon (principal); K62.1 Rectal polyp; K21.9 Gastro-esophageal reflux disease without esophagitis; I10 Essential (primary) hypertension; E78.5 Hyperlipidemia, unspecified; I25.10 Atherosclerotic heart disease of native coronary artery without angina pectoris; G47.33 Obstructive sleep apnea (adult) (pediatric); F32.A Depression, unspecified; Z90.89 Acquired absence of other organs; Z79.899 Other long term (current) drug therapy
CPT/HCPCS: 88305; 45380; J2704